=== PATIENT | female | born 1935 | race Caucasian/White ===

== ENCOUNTER → 2017-09-02 | Day surgery (SDC) | payer MEDICARE, BC | LOC: MSO 08-19 09:36 | DX: K21.9 Gastro-esophageal reflux disease without esophagitis (principal); Z80.0 Family history of malignant neoplasm of digestive organs; Z88.5 Allergy status to narcotic agent; Z87.891 Personal history of nicotine dependence; I10 Essential (primary) hypertension; E66.9 Obesity, unspecified; K44.9 Diaphragmatic hernia without obstruction or gangrene | CPT/HCPCS: 00731; A4649; J2704; J7120 ==